=== PATIENT | female | born 1980 | race Caucasian/White ===

== ENCOUNTER 2019-04-30 19:54 | Emergency (ER) | payer SELFPAY ==
--- NOTE | 2019-04-30 20:32 | EDM.PDOC ---
ED HPI GENERAL MEDICAL PROBLEM - General Chief Complaint: Skin Complaint Stated Complaint: RASH ABOVE EYE Time Seen by Provider: 04/30/19 20:06 - History of Present Illness INITIAL COMMENTS - FREE TEXT/NARRATIVE: HISTORY AND PHYSICAL: History of present illness: Patient 38-year-old female who presents with a concern of eczema patient has had prior diagnosis of eczema and he has a rash on her left persistent and is consistent with prior eczematous exacerbations. There's been no other complaints Review of systems: As per history of present illness and below otherwise all systems reviewed and negative. Past medical history: As per history of present illness and as reviewed below otherwise noncontributory. Surgical history: As per history of present illness and as reviewed below otherwise noncontributory. Social history: No reported history of drug or alcohol abuse. Family history: As per history of present illness and as reviewed below otherwise noncontributory. Physical exam: HEENT: Patient has an eczematous type rash to her left face normocephalic, pupils reactive, negative for conjunctival pallor or scleral icterus, mucous membranes moist, throat clear, neck supple, nontender, trachea midline. Lungs: Clear to auscultation, breath sounds equal bilaterally, chest nontender. Heart: S1S2, regular, negative for clicks, rubs, or JVD. Abdomen: Soft, nondistended, nontender. Negative for masses or hepatosplenomegaly. Negative for costovertebral tenderness. Pelvis: Stable nontender. Genitourinary: Deferred. Rectal: Deferred. Extremities: Atraumatic, negative for cords or calf pain. Neurovascular unremarkable. Neuro: Awake, alert, oriented. Cranial nerves II through XII unremarkable. Cerebellum unremarkable. Motor and sensory unremarkable throughout. Exam nonfocal. Diagnostics: None Therapeutics: None Impression: #1 eczema #2 medical screening exam Definitive disposition and diagnosis as appropriate pending reevaluation and review of above. left eye Pain Score (Numeric/FACES): 1 - Related Data Allergies Allergy/AdvReac Type Severity Reaction Status Date / Time No Known Allergies Allergy Verified 04/30/19 20:20 Home Meds: Home Meds . [No Known Home Meds] 04/30/19 [History] ED ROS GENERAL - Review of Systems Review Of Systems: Comprehensive ROS is negative, except as noted in HPI. ED EXAM, SKIN/RASH Exam: See Below (dictation) Course - Vital Signs Last Recorded V/S: Last Vital Signs Temp 36.2 C 04/30/19 20:20 Pulse 68 04/30/19 20:20 Resp 18 04/30/19 20:20 BP 163/105 H 04/30/19 20:20 Pulse Ox 98 04/30/19 20:20 Departure - Departure Time of Disposition: 20:31 Disposition: Home, Self-Care 01 Condition: Good Clinical Impression: Eczema - Discharge Information Referrals: PCP,None [Primary Care Provider] - Additional Instructions: The following information is given to patients seen in the emergency department who are being discharged to home. This information is to outline your options for follow-up care. We provide all patients seen in our emergency department with a follow-up referral. The need for follow-up, as well as the timing and circumstances, are variable depending upon the specifics of your emergency department visit. If you don't have a primary care physician on staff, we will provide you with a referral. We always advise you to contact your personal physician following an emergency department visit to inform them of the circumstance of the visit and for follow-up with them and/or the need for any referrals to a consulting specialist. The emergency department will also refer you to a specialist when appropriate. This referral assures that you have the opportunity for followup care with a specialist. All of these measure are taken in an effort to provide you with optimal care, which includes your followup. Under all circumstances we always encourage you to contact your private physician who remains a resource for coordinating your care. When calling for followup care, please make the office aware that this follow-up is from your recent emergency room visit. If for any reason you are refused follow-up, please contact the [facility] emergency department at and asked to speak to the emergency department charge nurse. [facility] [address] [place] [id number] Triamcinolone as prescribed follow-up primary care clinic above return as needed as discussed
== END 2019-04-30 20:40 | disposition home or self-care (01) ==
LOC: MW.ED 19:54
DX: L30.9 Dermatitis, unspecified (principal)
CPT/HCPCS: 99282

== ENCOUNTER 2020-06-06 00:16 | Emergency (ER) | payer SELFPAY ==
--- NOTE | 2020-06-06 01:10 | CR ---
INDICATION: Shortness of breath. COVID-19 positive. COMPARISON: None available. FINDINGS: An erect single view of the chest was obtained at 0057 hours hours. The lungs are clear. No focal or diffuse infiltrates are present. The heart is normal in size. The mediastinum is normal in appearance. The osseous structures are normal in appearance for the patient`s age. IMPRESSION: Normal chest single view. Nothing seem to suggest COVID-19 pneumonia. Dictated by Zeke Aleman MD @ Jun 06 2020 1:09AM Signed by Dr. Zeke Aleman @ Jun 06 2020 1:10AM
[2020-06-06 01:41] LABS: CORONAVIRUS COVID-19 NAA POSITIVE (NEGATIVE); INFLUENZA A NAA NEGATIVE (NEGATIVE); INFLUENZA B NAA NEGATIVE (NEGATIVE); RESPIRATORY SYNCYTIAL VIR NAA NEGATIVE (NEGATIVE)
--- NOTE | 2020-06-06 02:01 | EDM.PDOC ---
ED HPI GENERAL MEDICAL PROBLEM - General Chief Complaint: General Stated Complaint: CONJESTION AND HEADACHE Time Seen by Provider: 06/06/20 00:36 - History of Present Illness INITIAL COMMENTS - FREE TEXT/NARRATIVE: HISTORY AND PHYSICAL: History of present illness: This is a 39-year-old female who presents ER today complaining of cough, congestion, headache, muscle aches, myalgias who also noticed over the last day that she is had loss of taste of her food and olfactory sensation. Patient reports she feels short of breath. Patient complains of fevers at home. Patient denies any vomiting or diarrhea. Patient does complain of cough cold and rhinorrhea. Patient denies any sore throat. Patient has any abdominal pain. Patient denies any dysuria, frequency, urgency. Patient denies any rash. Patient reports she does have a headache but not the worst headache of her life. Review of systems: As per history of present illness and below otherwise all systems reviewed and negative. Past medical history: As per history of present illness and as reviewed below otherwise noncontributory. Surgical history: As per history of present illness and as reviewed below otherwise noncontributory. Social history: No reported history of drug or alcohol abuse. Family history: As per history of present illness and as reviewed below otherwise noncontributory. Physical exam: Constitutional: Patient is oriented to person, place, and time. Appears well- developed and well-nourished. No distress. HEENT: Moist mucous membranes Head: Normocephalic and atraumatic, neck supple, no nuchal rigidity, no photophobia, no Kernig's sign or Brudzinski sign, patient does not present with signs or symptoms of be consistent with meningitis. Oropharynx clear. Tympanic membranes normal. Eyes: Right eye exhibits no discharge. Left eye exhibits no discharge. No scleral icterus Neck: Normal range of motion. No tracheal deviation present. Cardiovascular: Normal rate and regular rhythm. Pulmonary: Effort normal, no respiratory distress. Abd: Soft, nondistended, no rebound/guarding, no psoas or obturator signs, no tenderness at Mcberney's point, no Farley's sign. Pt does not present with an exam that would be consistent with an acute surgical abdomen at this time Musculoskeletal: Normal range of motion Neurologic: Alert and oriented to person, place and time. Skin: [place], warm and dry. No rash Psychiatric: Normal mood and affect. Behavior is normal. Judgment and thought content normal. Nursing note and vital signs have been reviewed This patient was seen and evaluated during the 2019 SARS-CoV-2 novel coronavirus pandemic period. Community viral transmission is ongoing at time of this encounter and the emergency department is operating under pandemic response procedures. Diagnostics: Influenza A, influenza B, RSV negative Coronavirus test positive Pulse ox 99% on room air Chest Xray: Normal cardiac silhouette No infiltrates or effusions identified. No PTX No evidence of acute bony fracture. As interpreted by ER MD: Jaci Locke: [] Assessment and plan: This is a 39-year-old female who presents ER today secondary to fevers, malaise, myalgias, URI symptoms, loss of olfactory and taste sensation. Patient's ER work-up is consistent with positive coronavirus test. Patient pulse ox is 9 9% on room air. Patient's chest x-ray reveals no acute pathology. At this time, the patient is stable for outpatient management of her coronavirus. No antibiotics or steroids are indicated at this time. I have discussed with the patient need for self-isolation and quarantine. Patient be given a work note for 7 days and instructed to call the health department for further instructions. Reassessment at the time of disposition demonstrates that the patient is in no acute distress. The patient has remained stable throughout the entire ED visit and is without objective evidence for acute process requiring urgent intervention or hospitalization. The patient is stable for discharge, counseling is provided as documented above, discussed symptomatic treatment and specific conditions for return. I have spoken with the patient/caregiver and discussed todays findings, in addition to providing specific details for the plan of care. Questions are answered and there is agreement with the plan. Definitive disposition and diagnosis as appropriate pending reevaluation and review of above. Head Pain Score (Numeric/FACES): 8 - Related Data Allergies Allergy/AdvReac Type Severity Reaction Status Date / Time No Known Allergies Allergy Verified 06/06/20 00:25 Home Meds: Home Meds . 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: Musculoskeletal History: Reports: None Neurological History: Reports: None Psychiatric History: Reports: None Endocrine/Metabolic History: Reports: None Insulin Pump Model and Rework Machine Operator: None Hematologic History: Reports: None Immunologic History: Reports: None Oncologic (Cancer) History: Reports: None Dermatologic History: Reports: None - Infectious Disease History Infectious Disease History: Reports: Chicken Pox, Measles, Mumps Social & Family History - Family History Family Medical History: No Pertinent Family History - Tobacco Use Tobacco Use Status *Q: Never Tobacco User - Caffeine Use Caffeine Use: Reports: Energy Drinks - Recreational Drug Use Recreational Drug Use: No ED ROS GENERAL - Review of Systems Review Of Systems: See Below ED EXAM, GENERAL - Physical Exam Exam: See Below Course - Vital Signs Last Recorded V/S: Last Vital Signs Temp 97.8 F 06/06/20 00:25 Pulse 83 06/06/20 00:25 Resp 16 06/06/20 00:25 BP 166/82 H 06/06/20 00:25 Pulse Ox 98 06/06/20 00:25 - Orders/Labs/Meds Labs: Laboratory Tests 06/06/20 Range/Units 01:00 Influenza Type A RNA NEGATIVE (NEGATIVE) RSV RNA (INAAT) NEGATIVE (NEGATIVE) Influenza Type B RNA NEGATIVE (NEGATIVE) SARS-CoV-2 RNA (MARC) POSITIVE H (NEGATIVE) Departure - Departure Time of Disposition: 02:01 Disposition: Home, Self-Care 01 Condition: Good Clinical Impression: 2019 novel coronavirus disease (COVID-19) - Discharge Information Instructions: COVID-19 Frequently Asked Questions, COVID-19: How to Protect Yourself and Others - CDC, COVID-19, Prevent the Spread of COVID-19 if You Are Sick - CDC Referrals: PCP,None [Primary Care Provider] - Additional Instructions: You were seen and evaluated in the ER today secondary to signs symptoms consistent with coronavirus. Your coronavirus test today was positive. 1. Your COVID-19 screening is positive. That means you do have the coronavirus and you are considered contagious. Your vital signs and oxygen saturation are well enough that you were able to monitor your symptoms at home. Continue to monitor for trouble breathing, new confusion or inability to arouse, bluish lips or face or any of the other symptoms we discussed -if this occurs please return to the emergency room. 2. Please self quarantine over the next 10 days. Inform any persons that you have been in contact with since you started becoming symptomatic that you have tested positive; they should be made aware and take the appropriate steps as needed. 3. You can take NyQuil during the evening to help get a restful night sleep. May alternate Tylenol and ibuprofen as needed for pain and fever management. 4. The [facility] department will be calling you and following up with you. The [employer] [facility] Hotline phone number , They are open Monday - Monday 7am - 7pm. Follow up with your primary care provider for re-evaluation and re-testing after the 10 day quarantine and discuss when you should be seen. The following information is given to patients seen in the emergency department who are being discharged to home. This information is to outline your options for follow-up care. We provide all patients seen in our emergency department with a follow-up referral. The need for follow-up, as well as the timing and circumstances, are variable depending upon the specifics of your emergency department visit. If you don't have a primary care physician on staff, we will provide you with a referral. We always advise you to contact your personal physician following an emergency department visit to inform them of the circumstance of the visit and for follow-up with them and/or the need for any referrals to a consulting specialist. The emergency department will also refer you to a specialist when appropriate. This referral assures that you have the opportunity for follow-up care with a s pecialist. All of these measure are taken in an effort to provide you with optimal care, which includes your follow-up. Under all circumstances we always encourage you to contact your private physici an who remains a resource for coordinating your care. When calling for follow-up care, please make the office aware that this follow-up is from your recent emergency room visit. If for any reason you are refused follow-up, please contact the [facility] Emergency Department at and asked to speak to the emergency department charge nurse. [facility] - Primary Care [address] [place] [id number] [address] [place] [address] Sepsis Event Note (ED) - Evaluation Sepsis Screening Result: No Definite Risk - Focused Exam Vital Signs: Vital Signs Temp Pulse Resp BP Pulse Ox 06/06/20 00:25 97.8 F 83 16 166/82 H 98
== END 2020-06-06 02:10 | disposition home or self-care (01) ==
LOC: MW.ED 00:16
DX: U07.1 COVID-19 (principal)
CPT/HCPCS: 0241U; 71045; 99285; 99282

== ENCOUNTER 2021-05-29 22:28 | Emergency (ER) | payer SELFPAY ==
[2021-05-29 23:34] LABS: CORONAVIRUS COVID-19 NAA NEGATIVE (NEGATIVE); INFLUENZA A NAA NEGATIVE (NEGATIVE); INFLUENZA B NAA NEGATIVE (NEGATIVE)
[2021-05-29] MEDS ORDERED: Acetaminophen 325 MG Tab PO ONE (23:57)
--- NOTE | 2021-05-29 23:57 | EDM.PDOC ---
ED HPI GENERAL MEDICAL PROBLEM - General Chief Complaint: General Stated Complaint: CONGESTION,HEADACHE Time Seen by Provider: 05/29/21 23:53 - History of Present Illness INITIAL COMMENTS - FREE TEXT/NARRATIVE: HISTORY AND PHYSICAL: History of present illness: This is a healthy 40-year-old female who presents ER today secondary to cough, congestion, headache, sore throat, pain to her left ear times several days. Patient davinas has been taking ibuprofen without any significant relief in her symptoms. Patient denies any vomiting or diarrhea. Patient denies any chest pain or abdominal pain. Patient denies any dysuria, frequency, urgency. Patient denies any history of hypertension, diabetes, liver, lung, kidney problems. Review of systems: As per history of present illness and below otherwise all systems reviewed and negative. Past medical history: As per history of present illness and as reviewed below otherwise noncontributory. Surgical history: As per history of present illness and as reviewed below otherwise noncontributory. Social history: No reported history of drug abuse. Family history: As per history of present illness and as reviewed below otherwise noncontributory. Physical exam: This patient was seen and evaluated during the 2019 SARS-CoV-2 novel coronavirus pandemic period. Community viral transmission is ongoing at time of this encounter and the emergency department is operating under pandemic response procedures. Constitutional: Patient is oriented to person, place, and time. Appears well- developed and well-nourished. No distress. HEENT: Moist mucous membranes. Oropharynx is clear without any erythema. Tympanic membranes are normal without any erythema or bulging. Patient does have some mild tender swollen left submandibular lymph node. Head: Normocephalic and atraumatic. Minor meningitis Eyes: Right eye exhibits no discharge. Left eye exhibits no discharge. No scleral icterus Neck: Normal range of motion. No tracheal deviation present. Cardiovascular: Normal rate and regular rhythm. Regular rate and rhythm with S1-S2. No murmurs gallops or rubs. Pulmonary: Effort normal, no respiratory distress. No wheezing rales or rhonchi Abdominal: No distention Musculoskeletal: Normal range of motion Neurologic: Alert and oriented to person, place and time. Skin: [place], warm and dry. Psychiatric: Normal mood and affect. Behavior is normal. Judgment and thought content normal. Nursing note and vital signs have been reviewed Diagnostics: Covid/influenza negative Therapeutics: Acetaminophen Assessment and plan: 40-year-old female with signs and symptoms consistent with a viral upper respiratory infection. Patient's Covid and influenza test were both negative. Patient's oxygen level is 98% on room air. Patient is clinically hemodyn amically stable and not exhibiting any signs or symptoms consistent with pneumonia or sepsis. Patient be discharged home with instructions to continue with ibuprofen and acetaminophen and [id number] medications help her with her symptoms. Patient is to follow-up with her primary care physician in the next 2 to 3 days for reevaluation. Reassessment at the time of disposition demonstrates that the patient is in no acute distress. The patient has remained stable throughout the entire ED visit and is without objective evidence for acute process requiring urgent intervention or hospitalization. The patient is stable for discharge, counseling is provided as documented above, discussed symptomatic treatment and specific conditions for return. I have spoken with the patient/caregiver and discussed todays findings, in addition to providing specific details for the plan of care. Questions are answered and there is agreement with the plan. Definitive disposition and diagnosis as appropriate pending reevaluation and review of above. 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: Musculoskeletal History: Reports: None Neurological History: Reports: None Psychiatric History: Reports: None Endocrine/Metabolic History: Reports: None Insulin Pump Model and Manager Social Media: None Hematologic History: Reports: None Immunologic History: Reports: None Oncologic (Cancer) History: Reports: None Dermatologic History: Reports: Psoriasis - Infectious Disease History Infectious Disease History: Reports: Chicken Pox, Measles, Mumps Social & Family History - Family History Family Medical History: No Pertinent Family History - Tobacco Use Tobacco Use Status *Q: Never Tobacco User - Caffeine Use Caffeine Use: Reports: Energy Drinks - Recreational Drug Use Recreational Drug Use: No ED ROS GENERAL - Review of Systems Review Of Systems: See Below ED EXAM, GENERAL - Physical Exam Exam: See Below Course - Vital Signs Last Recorded V/S: Last Vital Signs Temp 97.1 F 05/29/21 22:45 Pulse 85 05/29/21 22:45 Resp 18 05/29/21 22:45 BP 200/82 H 05/29/21 22:45 Pulse Ox 100 05/29/21 22:45 - Orders/Labs/Meds Labs: Laboratory Tests 05/29/21 Range/Units 22:42 Influenza Type A RNA NEGATIVE (NEGATIVE) Influenza Type B RNA NEGATIVE (NEGATIVE) SARS-CoV-2 RNA (MARC) NEGATIVE (NEGATIVE) Departure - Departure Time of Disposition: 23:56 Disposition: Home, Self-Care 01 Condition: Good Clinical Impression: Upper respiratory infection, viral - Discharge Information Instructions: Viral Respiratory Infection, [id number] Additional Instructions: Your seen and evaluated in ER today secondary to signs and symptoms consistent with a viral respiratory infection. Your Covid and influenza test were both negative. Please continue taking ibuprofen 600 mg every 6 hours and you can add 1 g of acetaminophen every 6 hours as well. Please make an appointment to follow-up with your doctor in the next 2 to 3 days for reevaluation. The following information is given to patients seen in the emergency department who are being discharged to home. This information is to outline your options for follow-up care. We provide all patients seen in our emergency department with a follow-up referral. The need for follow-up, as well as the timing and circumstances, are variable depending upon the specifics of your emergency department visit. If you don't have a primary care physician on staff, we will provide you with a referral. We always advise you to contact your personal physician following an emergency department visit to inform them of the circumstance of the visit and for follow-up with them and/or the need for any referrals to a consulting specialist. The emergency department will also refer you to a specialist when appropriate. This referral assures that you have the opportunity for follow-up care with a specialist. All of these measure are taken in an effort to provide you with optimal care, which includes your follow-up. Under all circumstances we always encourage you to contact your private physician who remains a resource for coordinating your care. When calling for follow-up care, please make the office aware that this follow-up is from your recent emergency room visit. If for any reason you are refused follow-up, please contact the [facility] Emergency Department at and asked to speak to the emergency department charge nurse. [facility] - Primary Care [address] [place] [address] [id number] [address] [address] Sepsis Event Note (ED) - Evaluation Sepsis Screening Result: No Definite Risk - Focused Exam Vital Signs: Vital Signs Temp Pulse Resp BP Pulse Ox 05/29/21 22:45 97.1 F 85 18 200/82 H 100
== END 2021-05-30 00:09 | disposition home or self-care (01) ==
LOC: MW.ED 22:28
DX: J06.9 Acute upper respiratory infection, unspecified (principal); Z91.018 Allergy to other foods; Z20.822 Contact with and (suspected) exposure to COVID-19
CPT/HCPCS: 0240U; 99283; A9270

== ENCOUNTER 2023-12-15 00:32 | Emergency (ER) | payer SELFPAY | END 2023-12-15 01:30 | disposition home or self-care (01) | LOC: MW.ED 00:32 | DX: L40.9 Psoriasis, unspecified (principal); Z75.8 Other problems related to medical facilities and other health care; Z91.018 Allergy to other foods; Z79.899 Other long term (current) drug therapy | CPT/HCPCS: 99283 ==

== ENCOUNTER 2024-08-30 07:50 | Observation (INO) | payer SELFPAY ==
[2024-08-30] MEDS ORDERED: Sodium Chloride 0.9% 10 ML Syringe FLUSH PRN (07:59)
[2024-08-30] MEDS ORDERED: Sodium Chloride 0.9% 20 ML SDV IV PRN (07:59)
[2024-08-30] MEDS ORDERED: Sodium Chloride 0.9% 2.5 ML Syringe FLUSH PRN (07:59)
[2024-08-30 08:18] LABS: BASOPHILS ABSOLUTE AUTO 0.02 K/uL (0.00-0.20); BASOPHILS PERCENT AUTO 0.2 % (0.0-1.0); EOSINOPHILS ABSOLUTE AUTO 0.01 K/uL (0.00-0.45); EOSINOPHILS PERCENT AUTO 0.1 % (0.0-6.0); HEMOGLOBIN 13.5 g/dL (12.0-16.0); IMMATURE GRAN ABSOLUTE AUTO 0.02 K/uL (0.00-0.05); IMMATURE GRAN PERCENT AUTO 0.2 % (0.0-0.4); LYMPHOCYTES ABSOLUTE AUTO 1.06 K/uL (1.00-4.80); LYMPHOCYTES PERCENT AUTO 10.3 % (24.0-44.0); MEAN CORPUSCULAR HEMOGLOBIN 28.8 pg (28.0-32.0); MEAN CORPUSCULAR HGB CONC 34.6 g/dL (32.0-36.0); MEAN CORPUSCULAR VOLUME 83.3 fL (83.0-99.0); MONOCYTES ABSOLUTE AUTO 0.37 K/uL (0.00-0.80); MONOCYTES PERCENT AUTO 3.6 % (0.0-8.0); NEUTROPHILS ABSOLUTE AUTO 8.86 K/uL (1.80-7.70); NEUTROPHILS PERCENT AUTO 85.6 % (41.0-71.0); PLATELET COUNT,PLT 298 K/uL (150-400); RED BLOOD CELL COUNT 4.68 M/uL (4.10-5.30); WHITE BLOOD CELL COUNT,WBC 10.34 K/uL (3.9-11.3)
[2024-08-30 08:47] LABS: ALBUMIN 3.9 g/dL (3.4-5.0); BILIRUBIN TOTAL 0.3 mg/dL (0.2-1.0); CALCIUM 8.6 mg/dL (8.5-10.1); CARBON DIOXIDE,CO2 26.8 mmol/L (21.0-32.0); CREATININE 0.8 mg/dL (0.6-1.0); EST CRCL DRUG DOSING (CG) 64.46 mL/min; MAGNESIUM 1.7 mg/dL (1.8-2.4); PROTEIN TOTAL,TP 7.7 g/dL (6.4-8.2)
[2024-08-30 08:50] LABS: LACTIC ACID 1.5 mmol/L (0.4-2.0)
[2024-08-30 08:55] LABS: APPEARANCE,URINE SLT CLOUDY; BILIRUBIN,URINE NEGATIVE (NEGATIVE); GLUCOSE,URINE NEGATIVE (NEGATIVE); KETONES,URINE NEGATIVE (NEGATIVE); LEUKOCYTE ESTERASE,URINE TRACE (NEGATIVE); NITRITE,URINE NEGATIVE (NEGATIVE); OCCULT BLOOD,URINE LARGE (NEGATIVE); PH,URINE 8.5 (5.0-8.0); PROTEIN,URINE 30 mg/dL (NEGATIVE); UROBILINOGEN,URINE 0.2 EU/dL (<2.0)
[2024-08-30 08:56] LABS: COLOR,URINE PINK
[2024-08-30 09:07] LABS: BACTERIA,URINE RARE (NEGATIVE); EPITHELIAL CELLS,URINE OCCASIONAL (NONE-FEW); RBC,URINE TOO NUMEROUS TO CT (0-2/HPF)
[2024-08-30] MEDS: Potassium Chloride 10 MEQ in Premix Bag 1 BAG IV SCH ×2 (09:31→16:52)
[2024-08-30] MEDS: Magnesium Sulf/Wat 2 GM/50 mL 2 GM in Premix Bag 1 BAG IV ONE (09:32)
[2024-08-30] MEDS: Potassium Chloride 20 MEQ Tab.ER PO ONE (09:32)
[2024-08-30] MEDS: Sodium Chloride 0.9% 250 ML IV ONE (09:33)
[2024-08-30] MEDS: Ondansetron 4 MG/2 ML SDV IVPUSH ONE (09:34)
[2024-08-30] MEDS: Morphine 4 MG/ML Syringe IVPUSH STA (09:34)
[2024-08-30] MEDS: Iopamidol 755 MG/ML 500 ML Multipack Bottle IVPUSH STA (10:48)
[2024-08-30] MEDS ORDERED: Naloxone 0.4 MG/ML SDV IVPUSH PRN ×2 (11:17→13:34)
[2024-08-30] MEDS: Morphine 2 MG/ML SYRINGE IVPUSH ONE (11:53)
[2024-08-30] MEDS: HYDROmorphone 0.5 MG/0.5 ML Syringe IVPUSH ONE ×2 (13:54→14:18)
[2024-08-30] MEDS: Sodium Chloride 0.9% 1,000 ML IV ONE (14:18)
[2024-08-30] MEDS ORDERED: diphenhydrAMINE 50 MG/ML SDV IVPUSH PRN (14:26)
[2024-08-30] MEDS: Lactated Ringers 1,000 ML IV SCH (16:24)
[2024-08-30] MEDS: Ondansetron 4 MG/2 ML SDV IVPUSH PRN (16:46)
[2024-08-30] MEDS: Magnesium Sulf/Wat 4 GM/100 mL 4 GM in Premix Bag 1 BAG IV ONE (16:53)
[2024-08-30] MEDS: Acetaminophen/oxyCODONE 325-5 MG Tab PO PRN (20:44)
[2024-08-30] MEDS: Scopalamine 1mg/3day Transdermal Patch TRDERM PRN (21:35)
[2024-08-31] MEDS: HYDROmorphone 0.5 MG/0.5 ML Syringe IVPUSH PRN (00:08)
[2024-08-31 06:22] LABS: HEMATOCRIT 35.8 % (37.0-47.0); HEMOGLOBIN 11.6 g/dL (12.0-16.0); MEAN CORPUSCULAR HEMOGLOBIN 27.8 pg (28.0-32.0); MEAN CORPUSCULAR HGB CONC 32.4 g/dL (32.0-36.0); MEAN CORPUSCULAR VOLUME 85.9 fL (83.0-99.0); MEAN PLATELET VOLUME 10.8 fL (9.4-12.3); PLATELET COUNT,PLT 282 K/uL (150-400); RED BLOOD CELL COUNT 4.17 M/uL (4.10-5.30); WHITE BLOOD CELL COUNT,WBC 11.03 K/uL (3.9-11.3)
[2024-08-31 06:41] LABS: HEMOGLOBIN A1C 5.6 %
[2024-08-31 06:54] LABS: ALANINE AMINOTRANSFERASE,ALT 17 IU/L (14-63); ALKALINE PHOSPHATASE 83 U/L (46-116); ASPARTATE AMNIOTRANSFERASE,AST 12 IU/L (15-37); BILIRUBIN TOTAL 0.5 mg/dL (0.2-1.0); BLOOD UREA NITROGEN,BUN 7 mg/dL (7.0-18.0); CALCIUM 8.2 mg/dL (8.5-10.1); CARBON DIOXIDE,CO2 28.7 mmol/L (21.0-32.0); CHLORIDE,CL 104 mmol/L (98-107); CREATININE 0.9 mg/dL (0.6-1.0); GLUCOSE RANDOM 106 mg/dL (74-106); POTASSIUM,K 3.7 mmol/L (3.5-5.1); PROTEIN TOTAL,TP 6.1 g/dL (6.4-8.2); SODIUM,NA 138 mmol/L (136-145)
[2024-08-31 06:59] LABS: ESTIMATED GFR 81 mL/min (>60)
[2024-08-31] MEDS ORDERED: Bupivacaine 0.5% 30 ML SDV ONE (08:28)
[2024-08-31] MEDS ORDERED: Ropivacaine 0.5% 5 MG/ML 30 ML SDV ONE (08:30)
[2024-08-31] MEDS ORDERED: Bupivacaine 0.25% 30 ML SDV ONE (08:30)
[2024-08-31] MEDS ORDERED: fentaNYL 100 MCG/2 ML SDV ONE (08:34)
[2024-08-31] MEDS ORDERED: Propofol 200 MG/20 ML SDV ONE (08:34)
[2024-08-31] MEDS ORDERED: Rocuronium Bromide 50 MG/5 ML Syringe ONE ×2 (08:34→11:22)
[2024-08-31] MEDS ORDERED: dexmedeTOMIDine HCl 200 MCG/2 ML SDV ONE (09:58)
[2024-08-31] MEDS ORDERED: Sugammadex Sodium 200 MG/2 ML VIAL IV ONE (09:58)
[2024-08-31] MEDS ORDERED: Ondansetron 4 MG/2 ML SDV ONE (10:32)
[2024-08-31] MEDS ORDERED: Dexamethasone 4 MG/ML 5 ML MDV ONE (10:32)
[2024-08-31] MEDS ORDERED: ceFAZolin 2 GM Vial ONE (10:40)
[2024-08-31] MEDS ORDERED: Morphine 2 MG/ML SYRINGE IVPUSH PRN (11:12)
[2024-08-31] MEDS ORDERED: Naloxone 0.4 MG/ML SDV IVPUSH PRN (11:12)
[2024-08-31] MEDS ORDERED: Albuterol 0.083% 2.5 MG/3 ML Neb Soln NEB PRN (11:12)
[2024-08-31] MEDS ORDERED: HYDROmorphone 1 MG/ML Syringe IVPUSH PRN (11:12)
[2024-08-31] MEDS ORDERED: Phenylephrine HCl In 0.9% NaCl 1 MG/10 ML Syringe IVPUSH PRN (11:12)
[2024-08-31] MEDS ORDERED: Ondansetron 4 MG/2 ML SDV IVPUSH PRN (11:12)
[2024-08-31] MEDS ORDERED: Metoclopramide 10 MG/2 ML SDV IVPUSH PRN (11:12)
[2024-08-31] MEDS ORDERED: fentaNYL 50 MCG/ML SDV IVPUSH PRN (11:12)
[2024-08-31] MEDS ORDERED: Ketorolac 30 MG/ML SDV ONE (11:20)
[2024-08-31] MEDS: Sodium Chloride 0.9% 1,000 ML IV SCH (15:48)
[2024-09-01] MEDS: Ketorolac 30 MG/ML SDV IVPUSH ONE (09:14)
== END 2024-09-01 12:30 | disposition home or self-care (01) ==
LOC: MW.ED 07:50 → MW.MS 14:40
PROVIDERS: ADMIT Surgery; ATTEND Surgery
DX: K80.12 Calculus of gallbladder with acute and chronic cholecystitis without obstruction (principal); E83.42 Hypomagnesemia; E87.6 Hypokalemia; Z91.018 Allergy to other foods
CPT/HCPCS: 36415; 47562; 64488; 71046; 71275; 74177; 76705; 80053; 81001; 83036; 83605; 83690; 83735; 84484; 84703; 85025; 85027; 85379; 87040; 87070; 87075; 87086; 87205; 93005; A9270; J0665; J0690; J1100; J1885; J2270; J2405; J2704; J2795; J3010; J3475; J3480; J7030; J7120; Q9967; 00790; 64486; 99285; J3490